=== PATIENT | male | born 1965 | race Caucasian/White ===

== ENCOUNTER 2017-09-04 06:42 | Emergency (ER) | payer BC ==
[~2017-09-04] VITALS: Ht 180.3 cm; Wt 80.3 kg
[2017-09-04] MEDS ORDERED: IBUPROFEN 400 MG TAB PO ONE (07:30)
[2017-09-04 08:39] VITALS: BP 132/78
== END 2017-09-04 08:35 | disposition home or self-care (01) ==
LOC: FSED 06:42
DX: S80.12XA Contusion of left lower leg, initial encounter (principal); W22.8XXA Striking against or struck by other objects, initial encounter; Y93.89 Activity, other specified; Y92.009 Unspecified place in unspecified non-institutional (private) residence as the place of occurrence of the external cause
CPT/HCPCS: 99283